=== PATIENT | female | born 2000 | race Caucasian/White ===

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

== ENCOUNTER 2022-03-18 12:40 | Outpatient (CLI) | payer OTHER ==
[2022-03-18 12:51] LABS: BHCG - Serum Negative (NEGATIVE); Pregs Control Background? CLEAR/WHITE (CLR/WHITE); Pregs Control Bar Appear? YES (CONTROL BAR)
== END 2022-03-18 12:41 | disposition home or self-care (01) ==
LOC: MADLABBHPM 12:40 → MADLAB 12:41
PROVIDERS: ATTEND Family Medicine
DX: N92.6 Irregular menstruation, unspecified (principal)
CPT/HCPCS: 84703

== ENCOUNTER 2022-04-29 18:38 | Emergency (ER) | payer OTHER ==
[2022-04-29] MEDS ORDERED: predniSONE 20 MG TAB ONE (19:19)
[2022-04-29] MEDS ORDERED: Amoxicillin/Potassium Clav 875 MG TAB ONE (19:19)
== END 2022-04-29 19:36 | disposition home or self-care (01) ==
LOC: MADERS 18:38
DX: J02.9 Acute pharyngitis, unspecified (principal)
CPT/HCPCS: 87081; 87430; 87804; 99283; J7512

== ENCOUNTER 2022-05-29 18:10 | Emergency (ER) | payer OTHER ==
[2022-05-29 19:26] LABS: Bilirubin Negative (Negative); Blood, Urine Large (Negative); Glucose, Urine (Dipstick) Negative (Negative); Ketone, Urine Negative (Negative); Leukocyte Negative (Negative); Nitrite Negative (Negative); Protein, Urine (Dipstick) Negative (Neg-Trace); Urobilinogen 0.2 mg/dL (Less than 2)
[2022-05-29 19:28] LABS: Clarity Hazy (Clear)
[2022-05-29 19:29] LABS: Pregnancy Test - Urine (BHCG) Negative (Negative); Pregu Control Background? CLEAR/WHITE (CLR/WHITE); Pregu Control Bar Appear? YES (CONTROL BAR)
[2022-05-29 19:33] LABS: Bacteria/HPF Rare-Few HPF (None Seen); RBC/HPF Greater than 50 HPF (0-3); Squamous Epithelial 0-3 HPF (0-3); WBC/HPF 0-3 HPF (0-3)
[2022-05-29 20:14] LABS: #Basophils 0.1 thou/uL (0.0-0.2); #Eosinphils 0.8 thou/uL (0.0-0.7); #Lymphocytes 3.4 thou/uL (1.20-3.40); #Monocytes 0.8 thou/uL (0.11-0.59); %Basophils 0.5 % (0.0-1.0); %Eosinophils 5.3 % (0.0-10.0); %Lymphocytes 22.4 % (28.0-48.0); %Monocytes 5.2 % (0.0-4.0); %Neutrophils 66.6 % (31.0-61.0); Hemoglobin 14.5 g/dL (12.0-16.0); Mean Corpuscular HGB CONC 31.9 g/dL (32.0-36.0); Mean Corpuscular Volume 87.7 fl (78.0-98.0); Mean Platelet Volume 8.2 fL (7.4-10.4); Platelet Count 330 10x3/uL (130-400); RBC Distribution Width 13.4 % (11.5-14.5); Red Blood Cell (RBC) Count 5.19 mill/uL (4.00-5.20); White Blood Cell (WBC) Count 15.1 10x3/uL (4.8-10.8)
[2022-05-29 20:32] LABS: Anion Gap 17 mmol/L (10-20); BUN (Urea Nitrogen) 8 mg/dL (8.4-21.0); Calc. Creatinine Clearance 0 mL/min (70-130); Calcium 9.5 mg/dL (7.8-10.44); Carbon Dioxide 23 mmol/L (22-29); Chloride 104 mmol/L (98-107); Estimated GFR 107; Glucose 83 mg/dL (70-105); Potassium 3.8 mmol/L (3.5-5.1); Sodium 140 mmol/L (136-145)
== END 2022-05-29 21:50 | disposition home or self-care (01) ==
LOC: MADERS 18:10
DX: N93.8 Other specified abnormal uterine and vaginal bleeding (principal); F17.290 Nicotine dependence, other tobacco product, uncomplicated; G43.909 Migraine, unspecified, not intractable, without status migrainosus
CPT/HCPCS: 36415; 80048; 81003; 81015; 81025; 85025; 99284

== ENCOUNTER 2022-08-19 11:04 | Emergency (ER) | payer OTHER | END 2022-08-19 12:20 | disposition home or self-care (01) | LOC: MADERS 11:04 | DX: J06.9 Acute upper respiratory infection, unspecified (principal); Z20.822 Contact with and (suspected) exposure to COVID-19; G43.909 Migraine, unspecified, not intractable, without status migrainosus; F17.290 Nicotine dependence, other tobacco product, uncomplicated | CPT/HCPCS: 87804; 99283; U0003; U0005 ==

== ENCOUNTER 2022-09-24 09:33 | Emergency (ER) | payer OTHER | END 2022-09-24 11:05 | disposition home or self-care (01) | LOC: MADERS 09:33 | DX: H66.93 Otitis media, unspecified, bilateral (principal); F17.290 Nicotine dependence, other tobacco product, uncomplicated; Z20.822 Contact with and (suspected) exposure to COVID-19 | CPT/HCPCS: 87081; 87430; 87804; 99283; U0003; U0005 ==

== ENCOUNTER 2023-01-22 20:04 | Emergency (ER) | payer OTHER ==
[2023-01-22] MEDS ORDERED: Ondansetron PF 4 MG/2 ML Vial ONE (21:01)
[2023-01-22] MEDS ORDERED: Sodium Chloride 0.9% 1,000 ML ONE ×2 (21:01→22:27)
[2023-01-22 21:03] LABS: Bilirubin Negative (Negative); Blood, Urine Negative (Negative); Clarity Clear (Clear); Glucose, Urine (Dipstick) Negative (Negative); Ketone, Urine Negative (Negative); Leukocyte Negative (Negative); Nitrite Negative (Negative); Protein, Urine (Dipstick) Negative (Neg-Trace); pH, Urine 7.5 (5.0-9.0)
[2023-01-22 21:07] LABS: CAUTI Indications for Culture Dysuria,urgency,freq; Pregnancy Test - Urine (BHCG) Negative (Negative); Pregu Control Background? CLEAR/WHITE (CLR/WHITE); Pregu Control Bar Appear? YES (CONTROL BAR); RBC/HPF 0-3 HPF (0-3); Urine Culture Reflex No No; WBC/HPF 0-3 HPF (0-3)
[2023-01-22 21:17] LABS: Amphetamine Not Detected (NotDetected); Barbiturates Screen Not Detected (NotDetected); Benzodiazepine Screen Not Detected (NotDetected); Cocaine Metabolite Screen Not Detected (NotDetected); Methadone Not Detected (NotDetected); Methamphetamine Not Detected (NotDetected); Opiate Screen Not Detected (NotDetected); Oxycodone Screen Not Detected (NotDetected); Phencyclidine (PCP) Not Detected (NotDetected); THC/Cannabinoid Screen Not Detected (NotDetected); Tricyclic Screen Not Detected (NotDetected)
[2023-01-22 21:17] LABS: #Basophils 0.1 thou/uL (0.0-0.2); #Eosinphils 0.3 thou/uL (0.0-0.7); #Lymphocytes 3.1 thou/uL (1.20-3.40); #Monocytes 0.7 thou/uL (0.11-0.59); #Neutrophils 6.2 thou/uL (1.40-6.50); %Basophils 0.8 % (0.0-1.0); %Eosinophils 2.5 % (0.0-10.0); %Monocytes 6.4 % (0.0-4.0); %Neutrophils 60.2 % (31.0-61.0); Hemoglobin 14.6 g/dL (12.0-16.0); Mean Corpuscular HGB CONC 32.1 g/dL (32.0-36.0); Mean Corpuscular Hemoglobin 28.2 pg (25.0-35.0); Mean Corpuscular Volume 88.1 fl (78.0-98.0); Mean Platelet Volume 10.1 fL (7.4-10.4); Platelet Count 321 10x3/uL (130-400); RBC Distribution Width 13.6 % (11.5-14.5); Red Blood Cell (RBC) Count 5.17 mill/uL (4.00-5.20); White Blood Cell (WBC) Count 10.4 10x3/uL (4.8-10.8)
[2023-01-22 21:34] LABS: ALT (SGPT) 27 U/L (8-55); AST (SGOT) 16 U/L (5-34); Albumin 4.3 g/dL (3.5-5.0); Alkaline Phosphatase 82 U/L (40-100); Anion Gap 14 mmol/L (10-20); BUN (Urea Nitrogen) 6 mg/dL (7.0-18.7); Bilirubin, Total 0.5 mg/dL (0.2-1.2); Calc. Creatinine Clearance 0 mL/min (70-130); Calcium 9.5 mg/dL (7.8-10.44); Carbon Dioxide 25 mmol/L (22-29); Chloride 107 mmol/L (98-107); Estimated GFR 107; Globulin 3.2 g/dL (2.4-3.5); Glucose 80 mg/dL (70-105); Magnesium 2.2 mg/dL (1.7-2.2); Protein, Total 7.5 g/dL (6.0-8.3); Sodium 142 mmol/L (136-145)
[2023-01-22] MEDS ORDERED: Acetaminophen 500 MG TAB ONE (21:59)
== END 2023-01-22 23:42 | disposition home or self-care (01) ==
LOC: MADERS 20:04
DX: R11.2 Nausea with vomiting, unspecified (principal); A09 Infectious gastroenteritis and colitis, unspecified; F17.290 Nicotine dependence, other tobacco product, uncomplicated
CPT/HCPCS: 36415; 80053; 80306; 81001; 81025; 83735; 84484; 85025; 96361; 96374; J2405; J7050

== ENCOUNTER 2023-02-17 17:58 | Emergency (ER) | payer OTHER ==
[2023-02-17 18:31] LABS: Pregnancy Test - Urine (BHCG) Negative (Negative); Pregu Control Background? CLEAR/WHITE (CLR/WHITE); Pregu Control Bar Appear? YES (CONTROL BAR)
== END 2023-02-17 18:56 | disposition home or self-care (01) ==
LOC: MADERS 17:58
DX: J04.0 Acute laryngitis (principal); J06.9 Acute upper respiratory infection, unspecified; F17.290 Nicotine dependence, other tobacco product, uncomplicated; E28.2 Polycystic ovarian syndrome; Z20.822 Contact with and (suspected) exposure to COVID-19; Z79.84 Long term (current) use of oral hypoglycemic drugs; Z79.899 Other long term (current) drug therapy
CPT/HCPCS: 81025; 87081; 87430; 87635; 87804; 99284

== ENCOUNTER 2023-04-09 11:47 | Emergency (ER) | payer OTHER, SELFPAY ==
[2023-04-09] MEDS ORDERED: Ondansetron ODT 4 MG TAB ONE (12:20)
== END 2023-04-09 12:55 | disposition home or self-care (01) ==
LOC: MADERS 11:47
DX: J06.9 Acute upper respiratory infection, unspecified (principal); H66.92 Otitis media, unspecified, left ear; F17.290 Nicotine dependence, other tobacco product, uncomplicated; Z79.84 Long term (current) use of oral hypoglycemic drugs; Z79.899 Other long term (current) drug therapy
CPT/HCPCS: 71045; 87804; Q0162

== ENCOUNTER 2023-07-30 22:25 | Emergency (ER) | payer SELFPAY ==
[2023-07-30] MEDS ORDERED: Ibuprofen 800 MG TAB ONE (22:57)
[2023-07-30 23:02] LABS: Pregnancy Test - Urine (BHCG) Negative (Negative); Pregu Control Background? CLEAR/WHITE (CLR/WHITE); Pregu Control Bar Appear? YES (CONTROL BAR)
== END 2023-07-30 23:06 | disposition home or self-care (01) ==
LOC: MADERS 22:25
DX: N76.2 Acute vulvitis (principal); G43.909 Migraine, unspecified, not intractable, without status migrainosus; E28.2 Polycystic ovarian syndrome; F17.290 Nicotine dependence, other tobacco product, uncomplicated
CPT/HCPCS: 81025; 99283